=== PATIENT | male | born 1960 | race American Indian/Alaskan Native ===

== ENCOUNTER 2016-04-11 11:26 | Emergency (ER) | payer SELFPAY | END 2016-04-11 11:27 | disposition left against medical advice (07) | LOC: ED 11:26 | DX: R51 Headache (principal); Z53.21 Procedure and treatment not carried out due to patient leaving prior to being seen by health care provider ==

== ENCOUNTER 2016-04-22 09:06 | Outpatient (CLI) | payer OTHER ==
--- NOTE | 2016-04-22 09:40 | XRay Report ---
Lumbar spine 3 views: History: Low back pain. Findings: Normal height of vertebral bodies and intervertebral disc. Normal articular surfaces. No fracture. No soft tissue calcification. Impression: No bony or articular abnormality lumbar spine.
== END 2016-04-22 09:07 | disposition home or self-care (01) ==
LOC: XRAY 09:06
PROVIDERS: ATTEND Internal Medicine
DX: M54.5 Low back pain (principal)
CPT/HCPCS: 72110

== ENCOUNTER 2017-08-13 08:06 | Emergency (ER) | payer OTHER ==
[2017-08-13 09:01] LABS: Bilirubin,Urine NEG (Negative); Blood,Urine NEG (Negative); Color,Urine Straw (Yellow); Protein,Urine <15 mg/dL mg/dL (Negative); Urobilinogen,Urine < 2.0 mg/dL (<2.0); WBC,Urine < 1.0 /HPF (0.0-6.0)
[2017-08-13 09:26] LABS: Hematocrit 40.1 % (35.5-45.6); Hemoglobin 13.7 gm/dl (11.8-15.2); Mean Corpuscular HGB Conc 34 % (32-34); Mean Corpuscular Hemoglobin 30 pg (28-32); Mean Corpuscular Volume 88 fl (84-94); Platelet Count 205 K/mm3 (140-440); Red Blood Count 4.54 M/mm3 (3.65-5.03); Red Cell Distribution Width 15.2 % (13.2-15.2)
--- NOTE | 2017-08-13 09:37 | Emergency Department Report ---
Chief Complaint: Abdominal Pain Stated Complaint: CHEST PAIN WITH COUGH - HPI History of Present Illness: 56-year-old male presents to the emergency department with a one-month history of a cough as well as some pain to the left lateral chest. He was seen by his primary care physician, Dr. Lux, recommended the patient have x-ray imaging done. He denies any shortness of breath or fever but does present with a low-grade fever. He has a history of diabetes. He has not taken anything for her symptoms and presentation. No recent travel or sick contacts at home. - ROS Review of Systems: Patient is positive for chest pain and cough Negative for shortness of breath, fever, nausea, vomiting or diaphoresis - Exam Vital Signs: Vital Signs 08/13/17 08:29 Temperature 99.9 F H Pulse Rate 100 H Blood Pressure 138/87 O2 Sat by Pulse 98 Oximetry Physical Exam: Heart sounds are normal to auscultation. He has a mild wheeze with expiration but no tachypnea or accessory muscle use. He is calm and appropriate. Normal gait MSE screening note: Focused history and physical exam performed. Due to findings the following was ordered: Since the patient is 56 years old, with a history of diabetes, and does not have any reproducible chest pain, the patient will be seen on the main emergency department side. His EKG shows diffusely inverted T waves but this appears unchanged from 2013. I have added a troponin and a 2 view chest x-ray to his workup. ED Medical Decision Making - Lab Data Result diagrams: 08/13/17 09:04 ED Disposition for MSE Condition: Stable Referrals: DAREK LUX MD [Primary Care Provider] - 3-5 Days
[2017-08-13 09:43] LABS: Alanine Aminotransferase 20 units/L (7-56); Albumin 4.6 g/dL (3.9-5); BUN/Creatinine Ratio 12; Blood Urea Nitrogen 12 mg/dL (9-20); Calcium 10.1 mg/dL (8.4-10.2); Hemolysis Index 67
--- NOTE | 2017-08-13 10:36 | XRay Report ---
ROUTINE CHEST, TWO VIEWS: HISTORY: Chest pain, cough. The trachea, heart, mediastinal contour, lung harris and bony thorax are unremarkable. IMPRESSION: Unremarkable chest x-ray.
[2017-08-13] MEDS ORDERED: NACL 0.9% 1000 ML 1,000 ML IV ONE (12:47)
[2017-08-13] MEDS ORDERED: DUONEB *Not for PRN Use IH ONE ×3 (12:48→13:13)
--- NOTE | 2017-08-13 12:49 | Emergency Department Report ---
ED Abdominal Pain HPI - General Chief Complaint: Abdominal Pain Stated Complaint: CHEST PAIN WITH COUGH Time Seen by Provider: 08/13/17 12:44 Source: patient Mode of arrival: Ambulatory Limitations: No Limitations - History of Present Illness Initial Comments: Patient is a 56-year-old male that presents emergency room with complaints of chest pain only when he coughs. Patient states had a cough for 1 month. Patient also states that he is having left flank pain. Patient states the cough is worse with laying flat and exertion. Patient states the pain in his chest is better with rest. Patient states that the flank pain is better with rest. Patient states all his pain is worse with exertion and coughing. Patient states he had a low-grade fever last night he also has a low-grade fever today. Patient denies nausea vomiting. Patient denies diaphoresis. Patient is a diabetic. She denies shortness of breath. MD Complaint: abdominal pain, flank pain -: Sudden Location: L flank Radiation: none Migration to: no migration Severity: moderate Severity scale (0 -10): 5 Quality: stabbing Consistency: constant Improves With: rest Worsens With: movement Associated Symptoms: fever. denies: nausea, vomiting, diarrhea, chills, constipation, dysuria, hematemesis, hematochezia, melena, hematuria, anorexia, syncope - Related Data Previous Rx's Medication Instructions Recorded Last Taken Type ALBUTEROL Inhaler [ProAir HFA 2 puff IH Q4H PRN 10 Days #1 08/13/17 Unknown Rx Inhaler] inhalation Doxycycline Hyclate [Doxycycline 100 mg PO Q12HR 10 Days #20 tab 08/13/17 Unknown Rx Hyclate TAB] methylPREDNISolone [Medrol] 4 mg PO DAILY 6 Days #1 tab.ds.pk 08/13/17 Unknown Rx Allergies Allergy/AdvReac Type Severity Reaction Status Date / Time avocado Allergy Vomiting Unverified 04/22/16 09:08 levofloxacin [From Levaquin] AdvReac Itching Verified 08/13/17 13:03 ED Review of Systems ROS: Stated complaint: CHEST PAIN WITH COUGH Other details as noted in HPI Constitutional: denies: chills, fever Eyes: denies: eye pain, eye discharge, vision change ENT: denies: ear pain, throat pain Respiratory: cough, wheezing. denies: shortness of breath Cardiovascular: chest pain. denies: palpitations Endocrine: no symptoms reported Gastrointestinal: abdominal pain. denies: nausea, diarrhea Genitourinary: denies: urgency, dysuria Musculoskeletal: back pain. denies: joint swelling, arthralgia Skin: denies: rash, lesions Neurological: denies: headache, weakness, paresthesias Psychiatric: denies: anxiety, depression Hematological/Lymphatic: denies: easy bleeding, easy bruising ED Past Medical Hx - Past Medical History Previous Medical History?: Yes Hx Diabetes: Yes - Surgical History Past Surgical History?: Yes Additional Surgical History: right foot surgery - Family History Family history: hypertension - Social History Smoking Status: Never Smoker Substance Use Type: Marijuana - Medications Home Medications: Home Medications Medication Instructions Recorded Confirmed Last Taken Type ALBUTEROL Inhaler [ProAir HFA 2 puff IH Q4H PRN 10 Days #1 08/13/17 Unknown Rx Inhaler] inhalation Doxycycline Hyclate [Doxycycline 100 mg PO Q12HR 10 Days #20 tab 08/13/17 Unknown Rx Hyclate TAB] methylPREDNISolone [Medrol] 4 mg PO DAILY 6 Days #1 tab.ds.pk 08/13/17 Unknown Rx ED Physical Exam - General Limitations: No Limitations General appearance: alert, in no apparent distress - Head Head exam: Present: atraumatic, normocephalic - Eye Eye exam: Present: normal appearance - ENT ENT exam: Present: mucous membranes moist - Neck Neck exam: Present: normal inspection - Respiratory Respiratory exam: Present: normal lung sounds bilaterally, wheezes. Absent: respiratory distress - Cardiovascular Cardiovascular Exam: Present: regular rate, normal rhythm. Absent: systolic murmur, diastolic murmur, rubs, gallop - GI/Abdominal GI/Abdominal exam: Present: soft, normal bowel sounds - Rectal Rectal exam: Present: deferred - Extremities Exam Extremities exam: Present: normal inspection - Back Exam Back exam: Present: normal inspection - Neurological Exam Neurological exam: Present: alert, oriented X3 - Psychiatric Psychiatric exam: Present: normal affect, normal mood - Skin Skin exam: Present: warm, dry, intact, normal color. Absent: rash ED Course Vital Signs 08/13/17 08/13/17 08/13/17 08:29 13:16 13:52 Temperature 99.9 F H Pulse Rate 100 H Pulse Rate [ 78 85 Anterior Bilateral Throughout] Respiratory 18 18 Rate [Anterior Bilateral Throughout] Blood Pressure 138/87 O2 Sat by Pulse 98 Oximetry - Reevaluation(s) Reevaluation #1: Lungs clear to auscultation 08/13/17 14:48 Reevaluation #2: Radiologist called with CT scan. CT is negative for acute findings. Discussed all results with patient. Patient stable for discharge. We'll discharge patient home with discharge instructions and medications. 08/13/17 15:51 ED Medical Decision Making - Lab Data Result diagrams: 08/13/17 09:04 08/13/17 09:04 - EKG Data -: EKG Interpreted by Me EKG shows normal: sinus rhythm, axis, intervals, QRS complexes, ST-T waves Rate: normal - Radiology Data Per radiologist report patient has a negative CT of abdomen. - Medical Decision Making Patient is a 56-year-old male that presents emergency room with chest pain only when he coughs. And left flank pain. Patient found to have bronchitis and was wheezing initially. Wheezes have resolved with treatment. Will discharge patient home with appropriate treatment - Differential Diagnosis bronchitis. Cough. Chest pain. Flank pain. Abdominal pain Critical care attestation.: If time is entered above; I have spent that time in minutes in the direct care of this critically ill patient, excluding procedure time. ED Disposition Clinical Impression: Cough, Chest pain, Abdominal pain, Bronchitis, Left flank pain, UTI (urinary tract infection) Disposition: - TO HOME OR SELFCARE Is pt being admited?: No Does the pt Need Aspirin: No Condition: Stable Instructions: Chest Pain (ED), Acute Bronchitis (ED) Additional Instructions: Patient take medications as directed. Patient to follow up with primary 3-5 days. Patient to return to ER if condition worsens. Patient to take ibuprofen or Tylenol when necessary for pain. Patient to rest. Patient increase water. Patient take a brat diet Prescriptions: ALBUTEROL Inhaler [ProAir HFA Inhaler] 2 puff IH Q4H PRN 10 Days #1 inhalation PRN Reason: Shortness Of Breath Doxycycline Hyclate [Doxycycline Hyclate TAB] 100 mg PO Q12HR 10 Days #20 tab methylPREDNISolone [Medrol] 4 mg PO DAILY 6 Days #1 tab.ds.pk Referrals: DAREK LUX MD [Primary Care Provider] - 3-5 Days Time of Disposition: 15:51
[2017-08-13 13:34] LABS: Lipase 25 units/L (13-60)
[2017-08-13] MEDS ORDERED: NACL 0.9% 1000 ML 1,000 ML ONE ×2 (15:01)
[2017-08-13] MEDS ORDERED: ROCEPHIN/NS 1 GM/50 ML 1 GM/50 ML BAG IV ONE (15:53)
[2017-08-13] MEDS ORDERED: cefTRIAXone 1 GM in NACL 0.9% 20 ML IV ONE (17:00)
[2017-08-13 17:01] LABS: Bilirubin,Urine NEG (Negative); Blood,Urine NEG (Negative); Color,Urine Straw (Yellow); Protein,Urine <15 mg/dL mg/dL (Negative); Urobilinogen,Urine < 2.0 mg/dL (<2.0); WBC,Urine < 1.0 /HPF (0.0-6.0)
[2017-08-13 17:13] VITALS: BP 131/71
== END 2017-08-13 17:00 | disposition home or self-care (01) ==
LOC: ED 08:06
DX: J40 Bronchitis, not specified as acute or chronic (principal); N39.0 Urinary tract infection, site not specified; E11.9 Type 2 diabetes mellitus without complications; F12.10 Cannabis abuse, uncomplicated; Z88.1 Allergy status to other antibiotic agents; Z91.018 Allergy to other foods
CPT/HCPCS: 36415; 71046; 74176; 80053; 81001; 82150; 83690; 84484; 85027; 93005; 93010; 94640; 96361; 96374; 96375; 99285; J0696; J2930; J7030

== ENCOUNTER 2020-03-26 10:05 | Observation (INO) | payer OTHER ==
--- NOTE | 2020-03-26 10:18 | Emergency Department Report ---
Blank Doc - Documentation Documentation: 59-year-old male that presents with left sided chest pain with tightness, weak ness, and has been sweating. Denies any SOB. This initial assessment/diagnostic orders/clinical plan/treatment(s) is/are subject to change based on patient's health status, clinical progression and re- assessment by fellow clinical providers in the ED. Further treatment and workup at subsequent clinical providers discretion. Patient/guardians urged not to elope from the ED as their condition may be serious if not clinically assessed and managed. Initial orders include: 1- Patient sent to [facility] for further evaluation and treatment 2- cardiac work
[2020-03-26 10:48] LABS: Basophils % (Auto) 0.9 % (0.0-1.8); Eosinophils # (Auto) 0.1 K/mm3 (0.0-0.4); Eosinophils % (Auto) 2.6 % (0.0-4.3); Hematocrit 41.6 % (35.5-45.6); Hemoglobin 14.7 gm/dl (11.8-15.2); Lymphocytes # (Auto) 1.9 K/mm3 (1.2-5.4); Lymphocytes % (Auto) 46.4 % (13.4-35.0); Mean Corpuscular HGB Conc 35 % (32-34); Mean Corpuscular Volume 89 fl (84-94); Monocytes # (Auto) 0.2 K/mm3 (0.0-0.8); Monocytes % (Auto) 5.5 % (0.0-7.3); Platelet Count 187 K/mm3 (140-440); Red Blood Count 4.67 M/mm3 (3.65-5.03)
[2020-03-26 11:02] LABS: Alanine Aminotransferase 50 units/L (7-56); Albumin 4.3 g/dL (3.9-5); BUN/Creatinine Ratio 13; Blood Urea Nitrogen 13 mg/dL (9-20); Calcium 9.7 mg/dL (8.4-10.2); Hemolysis Index 7
--- NOTE | 2020-03-26 11:02 | XRay Report ---
CHEST 2 VIEWS INDICATION / CLINICAL INFORMATION: Chest Pain. COMPARISON: 08/13/2017 FINDINGS: SUPPORT DEVICES: None. HEART / MEDIASTINUM: No significant abnormality. LUNGS / PLEURA: No significant pulmonary or pleural abnormality. No pneumothorax. ADDITIONAL FINDINGS: No significant additional findings. IMPRESSION: 1. No acute findings or significant interval change when compared to 08/13/2017. Signer Name: Ashutosh Diaz MD Signed: 03/26/2020 10:58 AM Workstation Name: [id number]
[2020-03-26 11:03] LABS: INR 1.08 (0.87-1.13)
[2020-03-26 11:04] LABS: Partial Thromboplastin Time 28.2 Sec. (24.2-36.6)
[2020-03-26] MEDS ORDERED: ASPIRIN 325 MG TAB PO ONE (14:20)
--- NOTE | 2020-03-26 14:20 | Emergency Department Report ---
ED Chest Pain HPI - General Chief Complaint: Chest Pain Stated Complaint: HEADACHES,SWEATING,CHEST ISSUES Time Seen by Provider: 03/26/20 10:16 Source: patient Mode of arrival: Ambulatory Limitations: No Limitations - History of Present Illness Initial Comments: 59-year male with a past medical history of obesity, hypertension, diabetes, and smoker presents to the hospital complaints of intermittent chest pain, lightheadedness, and diaphoresis for the last 2 weeks. Diaphoresis occurs without exertion. Chest tightness also occurs without exertion. Patient has noticed increased fatigue and lightheadedness with exertional activity. Patient has a history of hypertension diabetes but noncompliant with his meds for greater than 1 year. 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 Nurse checked his blood pressure and was elevated and therefore patient resumed his leftover lisinopril 10 mg daily 1 week ago. Patient has not resumed his diabetes medication because he states that when he occasionally checks his glucose it is less than 120. He denies family history of CAD or previous stress test. He does not endorse shortness of breath, calf tenderness, or leg edema. He does complain of intermittent headaches - Related Data Previous Rx's Medication Instructions Recorded Last Taken Type Albuterol Mdi (or & Nicu Only) 2 puff IH Q4H PRN 10 Days #1 08/13/17 Unknown Rx [ProAir HFA Inhaler] inhalation Doxycycline Hyclate [Doxycycline 100 mg PO Q12HR 10 Days #20 tab 08/13/17 Unknown Rx Hyclate TAB] methylPREDNISolone [Medrol] 4 mg PO DAILY 6 Days #1 tab.ds.pk 08/13/17 Unknown Rx Allergies Allergy/AdvReac Type Severity Reaction Status Date / Time avocado Allergy Vomiting Verified 08/13/17 16:54 levofloxacin [From Levaquin] AdvReac Itching Verified 08/13/17 16:54 Heart Score - HEART Score History: Moderately suspicious EKG: Normal Age: 45-65 Risk factors: > 3 risk factors or hx of atherosclerotic disease Troponin: < normal limit HEART Score: 4 ED Review of Systems ROS: Stated complaint: HEADACHES,SWEATING,CHEST ISSUES Other details as noted in HPI Comment: All other systems reviewed and negative ED Past Medical Hx - Past Medical History Previous Medical History?: Yes Hx Diabetes: Yes - Surgical History Past Surgical History?: Yes Additional Surgical History: right foot surgery - Social History Smoking Status: Never Smoker Substance Use Type: Marijuana - Medications Home Medications: Home Medications Medication Instructions Recorded Confirmed Last Taken Type Albuterol Mdi (or & Nicu Only) 2 puff IH Q4H PRN 10 Days #1 08/13/17 Unknown Rx [ProAir HFA Inhaler] inhalation Doxycycline Hyclate [Doxycycline 100 mg PO Q12HR 10 Days #20 tab 08/13/17 Unknown Rx Hyclate TAB] methylPREDNISolone [Medrol] 4 mg PO DAILY 6 Days #1 tab.ds.pk 08/13/17 Unknown Rx ED Physical Exam - General Limitations: No Limitations - Other Other exam information: General: No acute distress Head: Atraumatic Eyes: normal appearance ENT: Moist mucous membranes Neck: Normal appearance, no midline tenderness Chest: Clear to auscultation bilaterally CV: Regular rate and rhythm Abdomen: Soft, normal bowel sounds, nontender, nondistended, no rebound or guarding Back: Normal inspection Extremity: Normal inspection, full range of motion Neuro: Alert O x 3, no facial asymmetry, speech clear, no gross motor sensory deficit Psych: Appropriate behavior Skin: No rash ED Course Vital Signs 03/26/20 10:19 Temperature 97.9 F Pulse Rate 74 Respiratory 16 Rate Blood Pressure 166/70 [Right] O2 Sat by Pulse 97 Oximetry CLARISA score - Clarisa Score Age > 65: (0) No Aspirin use within the Past 7 Days: (0) No 3 or more CAD Risk Factors: (1) Yes 2 or more Angina events in past 24 hrs: (1) Yes Known CAD with more than 50% Stenosis: (0) No Elevated Cardiac Markers: (0) No ST Deviation Greater than 0.5mm: (0) No CLARISA Score: 2 ED Medical Decision Making - Lab Data Result diagrams: 03/26/20 10:31 03/26/20 10:31 Lab Results 03/26/20 03/26/20 03/26/20 Range/Units 10:31 10:31 10:31 WBC 4.0 L (4.5-11.0) K/mm3 RBC 4.67 (3.65-5.03) M/mm3 Hgb 14.7 (11.8-15.2) gm/dl Hct 41.6 (35.5-45.6) % MCV 89 (84-94) fl MCH 32 (28-32) pg MCHC 35 H (32-34) % RDW 14.0 (13.2-15.2) % Plt Count 187 (140-440) K/mm3 Lymph % (Auto) 46.4 H (13.4-35.0) % [place] % (Auto) 5.5 (0.0-7.3) % Eos % (Auto) 2.6 (0.0-4.3) % Baso % (Auto) 0.9 (0.0-1.8) % Lymph # (Auto) 1.9 (1.2-5.4) K/mm3 [place] # (Auto) 0.2 (0.0-0.8) K/mm3 Eos # (Auto) 0.1 (0.0-0.4) K/mm3 Baso # (Auto) 0.0 (0.0-0.1) K/mm3 Seg Neutrophils % 44.6 (40.0-70.0) % Seg Neutrophils # 1.8 (1.8-7.7) K/mm3 PT 13.8 (12.2-14.9) Sec. INR 1.08 (0.87-1.13) APTT 28.2 (24.2-36.6) Sec. Sodium 135 L (137-145) mmol/L Potassium 4.1 (3.6-5.0) mmol/L Chloride 101.8 (98-107) mmol/L Carbon Dioxide 28 (22-30) mmol/L Anion Gap 9 mmol/L BUN 13 (9-20) mg/dL Creatinine 1.0 (0.8-1.3) mg/dL Estimated GFR > 60 ml/min BUN/Creatinine Ratio 13 % Glucose 134 H (75-100) mg/dL Calcium 9.7 (8.4-10.2) mg/dL Magnesium 2.20 (1.7-2.3) mg/dL Total Bilirubin 0.30 (0.1-1.2) mg/dL AST 27 (5-40) units/L ALT 50 (7-56) units/L Alkaline Phosphatase 69 (35-129) units/L Troponin T < 0.010 (0.00-0.029) ng/mL Total Protein 8.6 H (6.3-8.2) g/dL Albumin 4.3 (3.9-5) g/dL Albumin/Globulin Ratio 1.0 % - EKG Data -: EKG Interpreted by Me (Mild flattening/T wave inversions in inferior lateral leads) EKG shows normal: sinus rhythm, ST-T waves (No STEMI) Rate: normal - EKG Data When compared to previous EKG there are: no significant change - Radiology Data Radiology results: report reviewed CHEST 2 VIEWS INDICATION / CLINICAL INFORMATION: Chest Pain. COMPARISON: 08/13/2017 FINDINGS: SUPPORT DEVICES: None. HEART / MEDIASTINUM: No significant abnormality. LUNGS / PLEURA: No significant pulmonary or pleural abnormality. No pneumothorax. ADDITIONAL FINDINGS: No significant additional findings. IMPRESSION: 1. No acute findings or significant interval change when compared to 08/13/2017. - Medical Decision Making 59-year male with a past medical history of hypertension, diabetes, obesity, and tobacco use presents to the hospital with intermittent chest tightness, diaphoresis, lightheadedness, and fatigue. No previous history of stress test. Patient has multiple cardiac risk factors had a heart score of 4 and therefore patient will be admitted to the hospital for further cardiac work-up. Aspirin provided in the ED. Hemoglobin A1c and cholesterol level ordered in the ED and pending at disposition per Critical Care Time: No Critical care attestation.: If time is entered above; I have spent that time in minutes in the direct care of this critically ill patient, excluding procedure time. ED Disposition Clinical Impression: Chest pain, HTN (hypertension), Smoker, Obesity, Noncompliance with medication regimen Disposition: OP ADMIT IP TO THIS HOSP Is pt being admited?: Yes Does the pt Need Aspirin: Yes Condition: Stable Instructions: Chest Pain (ED), Hypertension (ED) Time of Disposition: 14:24 (Dr Bower/hosp)
[2020-03-26 14:41] LABS: Chol/HDL Ratio 4.86 %
[2020-03-26] MEDS ORDERED: ACETAMINOPHEN 325 MG TAB PO PRN (22:58)
[2020-03-26] MEDS ORDERED: ZOLPIDEM 5 MG TAB PO PRN (23:54)
--- NOTE | 2020-03-27 03:55 | History and Physical Report ---
History of Present Illness Date of examination: 03/26/20 Date of admission: 03/26/20 14:24 Chief complaint: Chest pain for 1 week. History of present illness: 59-year-old female with history of hypertension and obesity comes in for intermittent chest pain for the last 2 weeks associated with diaphoresis and lightheadedness. Diagnosis is intermittent. Pain is about 5 on a scale of 1-10 dull in character. Stop taking her blood pressure medications. Patient used to be on lisinopril. Noncompliant with diabetes medications and hypertension medications. No radiation of chest pain. No stress test. In the past. No stents in the past. Shortness of breath on exertion present. But she attributes it to her obesity. Heart Score - HEART Score History: Moderately suspicious EKG: Normal Age: 45-65 Risk factors: > 3 risk factors or hx of atherosclerotic disease Troponin: < normal limit HEART Score: 4 - Past Medical History Previous Medical History?: Yes -- Diabetes: Yes - Surgical History Past Surgical History?: Yes Additional Surgical History: right foot surgery - Social History Smoking Status: Never Smoker Substance Use Type: Marijuana - Medications Home Medications: Home Medications Medication Instructions Recorded Confirmed Last Taken Type Albuterol Mdi (or & Nicu Only) 2 puff IH Q4H PRN 10 Days #1 08/13/17 Unknown Rx [ProAir HFA Inhaler] inhalation Doxycycline Hyclate [Doxycycline 100 mg PO Q12HR 10 Days #20 tab 08/13/17 Unknown Rx Hyclate TAB] methylPREDNISolone [Medrol] 4 mg PO DAILY 6 Days #1 tab.ds.pk 08/13/17 Unknown Rx Review of Systems ROS: Stated complaint: HEADACHES,SWEATING,CHEST ISSUES Other details as noted in HPI Comment: All other systems reviewed and negative Medications and Allergies Allergies Allergy/AdvReac Type Severity Reaction Status Date / Time avocado Allergy Vomiting Verified 08/13/17 16:54 levofloxacin [From Levaquin] AdvReac Itching Verified 08/13/17 16:54 Home Medications Medication Instructions Recorded Confirmed Last Taken Type Albuterol Mdi (or & Nicu Only) 2 puff IH Q4H PRN 10 Days #1 08/13/17 Unknown Rx [ProAir HFA Inhaler] inhalation Doxycycline Hyclate [Doxycycline 100 mg PO Q12HR 10 Days #20 tab 08/13/17 Unknown Rx Hyclate TAB] methylPREDNISolone [Medrol] 4 mg PO DAILY 6 Days #1 tab.ds.pk 08/13/17 Unknown Rx Active Meds: Active Medications Acetaminophen (Acetaminophen 325 Mg Tab) 650 mg PO Q6H PRN PRN Reason: Pain, Mild (1-3) Last Admin: 03/26/20 23:22 Dose: 650 mg Documented by: Zolpidem Tartrate (Zolpidem 5 Mg Tab) 5 mg PO QHS PRN PRN Reason: Sleep Last Admin: 03/27/20 00:20 Dose: 5 mg Documented by: Exam - Constitutional Vitals: Temp Pulse Resp BP Pulse Ox 98 F 68 20 141/77 98 03/26/20 23:45 03/26/20 23:45 03/26/20 23:45 03/26/20 23:45 03/26/20 22:00 General appearance: Present: no acute distress, well-nourished - EENT Eyes: Present: PERRL ENT: hearing intact, clear oral mucosa - Neck Neck: Present: supple, normal ROM - Respiratory Respiratory effort: normal Respiratory: bilateral: CTA - Cardiovascular Heart rate: 78 Rhythm: regular Heart Sounds: Present: S1 & S2. Absent: rub, click - Extremities Extremities: pulses symmetrical, No edema Peripheral Pulses: within normal limits - Abdominal General gastrointestinal: Present: soft, non-tender, non-distended, normal bowel sounds Male genitourinary: Present: normal - Integumentary Integumentary: Present: clear, warm, dry - Musculoskeletal Musculoskeletal: gait normal, strength equal bilaterally - Psychiatric Psychiatric: appropriate mood/affect, intact judgment & insight - Neurologic Neurologic: CNII-XII intact, moves all extremities HEART Score - HEART Score EKG: Normal Age: 45-65 Risk factors: > 3 risk factors or hx of atherosclerotic disease Troponin: Troponin T < 0.010 ng/mL (0.00-0.029) 03/26/20 14:42 Troponin: < normal limit Results - Labs CBC & Chem 7: 03/26/20 10:31 03/26/20 10:31 Labs: Laboratory Last Values WBC 4.0 K/mm3 (4.5-11.0) L 03/26/20 10:31 RBC 4.67 M/mm3 (3.65-5.03) 03/26/20 10:31 Hgb 14.7 gm/dl (11.8-15.2) 03/26/20 10:31 Hct 41.6 % (35.5-45.6) 03/26/20 10:31 MCV 89 fl (84-94) 03/26/20 10:31 MCH 32 pg (28-32) 03/26/20 10:31 MCHC 35 % (32-34) H 03/26/20 10:31 RDW 14.0 % (13.2-15.2) 03/26/20 10:31 Plt Count 187 K/mm3 (140-440) 03/26/20 10:31 Lymph % (Auto) 46.4 % (13.4-35.0) H 03/26/20 10:31 Fountain % (Auto) 5.5 % (0.0-7.3) 03/26/20 10:31 Eos % (Auto) 2.6 % (0.0-4.3) 03/26/20 10:31 Baso % (Auto) 0.9 % (0.0-1.8) 03/26/20 10:31 Lymph # (Auto) 1.9 K/mm3 (1.2-5.4) 03/26/20 10:31 Fountain # (Auto) 0.2 K/mm3 (0.0-0.8) 03/26/20 10:31 Eos # (Auto) 0.1 K/mm3 (0.0-0.4) 03/26/20 10:31 Baso # (Auto) 0.0 K/mm3 (0.0-0.1) 03/26/20 10:31 Seg Neutrophils % 44.6 % (40.0-70.0) 03/26/20 10:31 Seg Neutrophils # 1.8 K/mm3 (1.8-7.7) 03/26/20 10:31 PT 13.8 Sec. (12.2-14.9) 03/26/20 10:31 INR 1.08 (0.87-1.13) 03/26/20 10:31 APTT 28.2 Sec. (24.2-36.6) 03/26/20 10:31 Sodium 135 mmol/L (137-145) L 03/26/20 10:31 Potassium 4.1 mmol/L (3.6-5.0) 03/26/20 10:31 Chloride 101.8 mmol/L (98-107) 03/26/20 10:31 Carbon Dioxide 28 mmol/L (22-30) 03/26/20 10:31 Anion Gap 9 mmol/L 03/26/20 10:31 BUN 13 mg/dL (9-20) 03/26/20 10:31 Creatinine 1.0 mg/dL (0.8-1.3) 03/26/20 10:31 Estimated GFR > 60 ml/min 03/26/20 10:31 BUN/Creatinine Ratio 13 % 03/26/20 10:31 Glucose 134 mg/dL (75-100) H 03/26/20 10:31 Hemoglobin A1c 6.2 % (4-6) H 03/26/20 10:31 Calcium 9.7 mg/dL (8.4-10.2) 03/26/20 10:31 Magnesium 2.20 mg/dL (1.7-2.3) 03/26/20 10:31 Total Bilirubin 0.30 mg/dL (0.1-1.2) 03/26/20 10:31 AST 27 units/L (5-40) 03/26/20 10:31 ALT 50 units/L (7-56) 03/26/20 10:31 Alkaline Phosphatase 69 units/L (35-129) 03/26/20 10:31 Troponin T < 0.010 ng/mL (0.00-0.029) 03/26/20 14:42 Total Protein 8.6 g/dL (6.3-8.2) H 03/26/20 10:31 Albumin 4.3 g/dL (3.9-5) 03/26/20 10:31 Albumin/Globulin Ratio 1.0 % 03/26/20 10:31 Triglycerides 117 mg/dL (2-149) 03/26/20 10:31 Cholesterol 175 mg/dL (50-199) 03/26/20 10:31 LDL Cholesterol Direct 118 mg/dL (50-130) 03/26/20 10:31 HDL Cholesterol 36 mg/dL (40-59) L 03/26/20 10:31 Cholesterol/HDL Ratio 4.86 % 03/26/20 10:31 Short CBC 03/26/20 Range/Units 10:31 WBC 4.0 L (4.5-11.0) K/mm3 Hgb 14.7 (11.8-15.2) gm/dl Hct 41.6 (35.5-45.6) % Plt Count 187 (140-440) K/mm3 BMP 03/26/20 10:31 Sodium 135 L Potassium 4.1 Chloride 101.8 Carbon Dioxide 28 BUN 13 Creatinine 1.0 Glucose 134 H Calcium 9.7 Cardiac Enzymes 03/26/20 03/26/20 Range/Units 10:31 14:42 Troponin T < 0.010 < 0.010 (0.00-0.029) ng/mL Liver Function 03/26/20 Range/Units 10:31 Total Bilirubin 0.30 (0.1-1.2) mg/dL AST 27 (5-40) units/L ALT 50 (7-56) units/L Alkaline Phosphatase 69 (35-129) units/L Albumin 4.3 (3.9-5) g/dL - Imaging and Cardiology EKG: report reviewed (Sinus rhythm no acute ST-T wave changes) Chest x-ray: report reviewed Garcia/IV: IV Catheter Type [Left INT / Saline Lock Antecubital] Assessment and Plan Advance Directives: Yes (Full code) VTE prophylaxis?: Chemical Plan of care discussed with patient/family: Yes - Patient Problems (1) Chest pain Current Visit: Yes Status: Acute Plan to address problem: Serial troponins Lexiscan in the morning (2) HTN (hypertension) Current Visit: Yes Status: Acute Plan to address problem: Patient initiated on valsartan 160 mg once a day (3) Noncompliance with medication regimen Current Visit: Yes Status: Chronic Plan to address problem: Counseled (4) Obesity Current Visit: Yes Status: Chronic Qualifiers: Obesity type: due to excess calories Obesity classification: adult class 3 (BMI >= 40) Plan to address problem: Needs diet and exercise and follow-up with bariatric surgery as outpatient (5) T2DM (type 2 diabetes mellitus) Current Visit: Yes Status: Chronic Qualifiers: Diabetes mellitus chcf 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
[2020-03-27] MEDS ORDERED: ONDANSETRON 4 MG/2 ML INJ IV PRN (03:59)
[2020-03-27] MEDS ORDERED: HYDROmorphone 1 MG/1 ML INJ IV PRN (03:59)
[2020-03-27] MEDS ORDERED: oxyCODONE /ACETAMINOPHEN 5-325MG TAB PO PRN (03:59)
[2020-03-27] MEDS ORDERED: ACETAMINOPHEN 325 MG TAB PO PRN (03:59)
[2020-03-27] MEDS ORDERED: REGADENOSON 0.4 MG/5 ML INJ IV ONE (08:48)
[2020-03-27] MEDS ORDERED: FAMOTIDINE 20 MG/2 ML INJ IV SCH (10:00)
--- NOTE | 2020-03-27 10:26 | Discharge Summary ---
Providers - Providers Date of Admission: 03/26/20 14:24 Date of discharge: 03/27/20 Attending physician: LEMUEL BRAVO Primary care physician: GLASS ARTIST Hospitalization Reason for admission: cp Condition: Stable Hospital course: 59-year-old female with history of hypertension and obesity comes in for intermittent chest pain for the last 2 weeks associated with diaphoresis and lightheadedness. Patient reported medical noncompliance with stop taking her blood pressure medications. Patient used to be on lisinopril. Also, patient wa s noncompliant with diabetes medications. The patient underwent stress test and if found to be negative, patient will discharge home. Dedicated discharge time 35 minutes Disposition: DC-01 TO HOME OR SELFCARE Time spent for discharge: 35 - Discharge Diagnoses (1) Chest pain Status: Acute (2) HTN (hypertension) Status: Acute (3) Noncompliance with medication regimen Status: Chronic (4) Obesity Status: Chronic Qualifiers: Obesity type: due to excess calories Obesity classification: adult class 3 (BMI >= 40) (5) T2DM (type 2 diabetes mellitus) Status: Chronic Qualifiers: Diabetes mellitus retirement insulin use: unspecified retirement insulin use status Core Measure Documentation - Palliative Care Palliative Care/ Comfort Measures: Not Applicable - Core Measures Any of the following diagnoses?: none Exam - Constitutional Vitals: Temp Pulse Resp BP Pulse Ox 98.0 F 68 18 116/79 99 03/27/20 05:18 03/27/20 05:18 03/27/20 05:18 03/27/20 05:18 03/27/20 05:18 General appearance: Present: no acute distress, well-nourished - EENT Eyes: Present: PERRL ENT: hearing intact, clear oral mucosa - Neck Neck: Present: supple, normal ROM - Respiratory Respiratory effort: normal Respiratory: bilateral: CTA - Cardiovascular Heart Sounds: Present: S1 & S2. Absent: rub, click - Extremities Extremities: pulses symmetrical, No edema Peripheral Pulses: within normal limits - Abdominal General gastrointestinal: Present: soft, non-tender, non-distended, normal bowel sounds Male genitourinary: Present: normal - Integumentary Integumentary: Present: clear, warm, dry - Musculoskeletal Musculoskeletal: gait normal, strength equal bilaterally - Psychiatric Psychiatric: appropriate mood/affect, intact judgment & insight - Neurologic Neurologic: CNII-XII intact, moves all extremities Plan Activity: advance as tolerated Weight Bearing Status: Weight Bear as Tolerated Diet: low fat, low cholesterol, low salt Follow up with: PRIMARY CARE, [Primary Care Provider] - 3-5 Days
[2020-03-27 11:33] VITALS: BP 151/87
[2020-03-27] MEDS ORDERED: FLU VACC QUAD 2020-2021 (6 months +)/PF 60 0.5 ML SYRINGE IM ONE (12:00)
--- NOTE | 2020-03-28 11:46 | Treadmill Report ---
NUCLEAR STRESS TEST PROTOCOL: The patient was brought to the stress lab in post-absorptive state, given 10 mCi of technetium 99m at rest. The patient underwent rest imaging. The patient underwent exercise stress test per standard protocol. At peak stress, the patient was given 26 mCi lead quality technician 99m. Shortly thereafter, the patient underwent stress imaging. Raw imaging reveals significant GI artifact, no significant motion artifact. SPECT imaging examined carefully in horizontal long axis, vertical long axis, short axis views. Technically difficult study due to GI artifact, but grossly no evidence of significant fixed or reversible perfusion defects suggestive of prior infarction or ischemia. Gated wall motion reveals normal systolic thickening, calculated ejection fraction of 60%. No TID. CONCLUSIONS: 1. Technically difficult study, but grossly probably normal without evidence of significant degree of ischemia or prior infarction. 2. Normal left ventricular systolic performance without evidence of transient ischemic dilatation or stress-induced segmental wall motion abnormalities. 3. Treadmill portion of the test is reported separately. JOB# [id number] SBM/NTS
== END 2020-03-27 16:30 | disposition home or self-care (01) ==
LOC: ED 10:05 → 4A 14:24
PROVIDERS: ADMIT Internal Medicine; ATTEND Hospitalist
DX: R07.89 Other chest pain (principal); I10 Essential (primary) hypertension; E11.9 Type 2 diabetes mellitus without complications; E66.9 Obesity, unspecified; F17.210 Nicotine dependence, cigarettes, uncomplicated; Z98.890 Other specified postprocedural states; Z91.14 Patient's other noncompliance with medication regimen; Z68.41 Body mass index [BMI] 40.0-44.9, adult
CPT/HCPCS: 36415; 71046; 78452; 80053; 80061; 83036; 83735; 84484; 85025; 85610; 85730; 90686; 93005; 93017; 99285; A9502; G0378